=== PATIENT | male | born 1975 ===

== ENCOUNTER 2020-03-21 13:58 | Emergency (ER) | payer OTHER ==
[~2020-03-21] VITALS: Ht 188 cm; Wt 126.1 kg
[2020-03-21] MEDS ORDERED: ENALAPRIL MALE2.5 MG PO (14:22)
[2020-03-21] MEDS ORDERED: SYNJARDY XR 251 EACH PO (14:22)
[2020-03-21] MEDS ORDERED: HUMALOG100 UNIT/2 (14:23)
[2020-03-21] MEDS ORDERED: FORTAMET1000 MG PO (14:23)
[2020-03-21] MEDS ORDERED: LANTUS SOL100 UNIT/1 (14:24)
[2020-03-21] MEDS ORDERED: SKELAXIN800 MG PO (17:33)
[2020-03-21] MEDS ORDERED: CELEBREX200MG PO (17:33)
== END 2020-03-21 17:46 | disposition home or self-care (01) ==
LOC: ER 13:58
DX: S33.5XXA Sprain of ligaments of lumbar spine, initial encounter (principal); S73.192A Other sprain of left hip, initial encounter; X50.0XXA Overexertion from strenuous movement or load, initial encounter; Y93.89 Activity, other specified; Y92.89 Other specified places as the place of occurrence of the external cause; Y99.8 Other external cause status